=== PATIENT | male | born 1980 | race Two or more races ===

== ENCOUNTER 2023-12-26 18:38 | Emergency (ER) | payer OTHER ==
[~2023-12-26] VITALS: Ht 195.6 cm; Wt 131.9 kg
[2023-12-26] MEDS: IBUPROFEN 600 MG TAB PO ONE (18:50)
[2023-12-26 19:49] LABS: Urine Bacteria None Seen /hpf (None Seen)
[2023-12-26 20:11] VITALS: BP 107/72; PULSE 90; RESP 18; TEMP 99.5
[2023-12-26 20:12] LABS: Urine Blood TRACE /uL (Negative); Urine Budding Yeast FEW /hpf (None Seen); Urine Clarity Clear (Clear); Urine Color Yellow (Yellow); Urine Protein, UAD 1+ (Negative); Urine Specific Gravity 1.027 (1.001-1.035); Urine Urobilinogen 3 mg/dL (Negative); Urine WBC 102 /hpf (0 - 3); Urine pH 6.5 (5.0-9.0)
[2023-12-26 20:20] LABS: Basophils # (auto) 0 10 ^3/uL (0-0.2); Eosinophils # (auto) 0.1 10 ^3/uL (0-0.8); Lymphocytes # (auto) 1.2 10 ^3/uL (0.4-5.4); Monocytes # (auto) 0.5 10 ^3/uL (0-1.3); Neutrophils % (auto) 79.3 % (37.0-80.0)
[2023-12-26 20:22] LABS: Basophils % (auto) 0.4 % (0.0-2.0); Eosinophils % (auto) 0.6 % (0.0-7.0); Hematocrit 43.5 % (41.0-53.0); Hemoglobin 14.9 g/dL (13.5-17.5); Lymphocytes % (auto) 13.9 % (10.0-50.0); Mean Corpuscular Hemoglobin 27.2 pg (28.0-32.0); Mean Corpuscular Hgb Conc. 34.1 g/dL (32.0-36.0); Mean Corpuscular Volume 79.7 fL (80.0-100.0); Monocytes % (auto) 5.8 % (0.0-12.0); Neutrophils # (auto) 6.9 10 ^3/uL (1.6-8.6); Red Blood Cells 5.47 10^6/uL (4.5-5.90); Red Cell Distribution Width 14.4 % (11.8-14.3); White Blood Cell 8.6 10^3/uL (4.4-10.8)
[2023-12-26 20:27] VITALS: O2SAT 93
[2023-12-26 20:29] LABS: Chloride 103 mmol/L (98-107); Potassium 3.6 mmol/L (3.5-5.1); Sodium 133 mmol/L (136-145)
[2023-12-26 20:30] LABS: Anion Gap 7 (5-15); Carbon Dioxide 23 mmol/L (20-30)
[2023-12-26 20:31] LABS: Calcium 9.6 mg/dL (8.7-10.4)
[2023-12-26 20:35] LABS: Glucose 182 mg/dL (74-106)
[2023-12-26 20:36] LABS: BUN/Creatinine Ratio 10.8 (10.0-20.0); Blood Urea Nitrogen 12 mg/dL (9-23)
[2023-12-26 20:49] LABS: COVID19 ANTIGEN SOFIA FIA NEGATIVE (NEGATIVE); Rapid Influenza A Negative (Negative); Rapid Influenza B Negative (Negative)
[2023-12-26] MEDS ORDERED: BACDST PO (21:19)
[2023-12-26] MEDS: SULFAMETHOX W/TRIMETH(800/160MG) DS TAB PO ONE (21:58)
== END 2023-12-26 22:02 | disposition home or self-care (01) ==
LOC: ER 18:38
DX: N10 Acute pyelonephritis (principal); E11.9 Type 2 diabetes mellitus without complications; Z20.822 Contact with and (suspected) exposure to COVID-19
CPT/HCPCS: 36415; 71045; 80048; 81001; 85025; 87426; 87804